=== PATIENT | female | born 1990 | race Caucasian/White ===

== ENCOUNTER 2018-10-17 07:50 | Emergency (ER) | payer OTHER ==
[2016-07-24 11:28] VITALS: BP 105/75
--- NOTE | 2018-10-17 08:43 | Diagnostic Imaging Report ---
DARBY GARNICA [facility] [id number] [facility] [address] [place], [place]. [address] Report Submission Date: Oct 17, 2018 8:38:59 AM COAL DIGGER Patient Study Name: CARLOS EGAN Date: Oct 17, 2018 8:06:30 AM COAL DIGGER Modality Type: DX Gender: F Description: CHEST : 89 Institution: [facility] Physician: DARBY GARNICA Examination: PA and lateral chest. History: Evaluate lung [place]. PT STATES PRODUCTIVE COUGH X 3 WEEKS Comparison exam: None provided. Findings: PA and lateral views of the chest demonstrates a normal cardiac and mediastinal silhouette. No focal infiltrate. No blunting of the costophrenic margins. Osseous structures are appropriate for age. Impression: No acute pulmonary process. Electronically signed on Oct 17, 2018 8:38:59 AM COAL DIGGER by: Florencio MARKS
== END 2018-10-17 09:00 | disposition home or self-care (01) ==
LOC: SUPCPDRO 07:50 → ED 07:50
DX: J06.9 Acute upper respiratory infection, unspecified (principal)
CPT/HCPCS: 71046; 96372; 99282; 99283; J2930

== ENCOUNTER 2018-12-08 07:41 | Emergency (ER) | payer OTHER ==
--- NOTE | 2018-12-08 07:48 | ED Physician Documentation ---
Pediatric Illness - HISTORIAN Historian: patient - PAST HX Allergies/Adverse Reactions: Allergies Allergy/AdvReac Type Severity Reaction Status Date / Time No Known Drug Allergies Allergy Verified 07/24/16 11:30 Discharge Referrals: Kitty Beavers MD [Primary Care Provider] - 2 Days
--- NOTE | 2018-12-08 07:49 | ED Physician Documentation ---
General Adult - HISTORIAN Historian: patient - HPI Stated Complaint: sore throat son has strep Chief Complaint: Sore Throat Onset: days ago (1) Timing: still present Severity: mild Further Comments: yes (She states her older son has strep and this am younger son woke with fever and she has had a sore throat. No fever. No rash. No other complaints) Last known Well Code/Unknown Code: Unknown - ROS CONST: no problems MS/SKIN/LYMPH: none NEURO/PSYCH: denies: headache - PAST HX Past History: none Other History: none Immunizations: UTD Allergies/Adverse Reactions: Allergies Allergy/AdvReac Type Severity Reaction Status Date / Time No Known Drug Allergies Allergy Verified 12/08/18 08:19 - SOCIAL HX Smoking History: non-smoker Alcohol Use: none Drug Use: none - FAMILY HX Family History: No - VITAL SIGNS Vital Signs: Vital Signs Temp Pulse Resp BP Pulse Ox 105/75 07/24/16 11:51 - REVIEWED ASSESSMENTS Nursing Assessment Reviewed: Yes Vitals Reviewed: Yes General Adult Physical Exam - PHYSICAL EXAM GENERAL APPEARANCE: no distress EENT: eye inspection normal, no signs of dehydration, TM's nml, pharyngeal erythema NECK: normal inspection RESPIRATORY: no resp distress, chest non-tender CVS: reg rate & rhythm ABDOMEN: soft, normal bowel sounds SKIN: warm/dry EXTREMITIES: non-tender NEURO: oriented X3 Discharge Clincal Impression: Strep throat Referrals: Kitty Beavers MD [Primary Care Provider] - 2 Days Comments: 1. Amoxicillin 875 mg take 1 by mouth twice a day x 10 days 2. Increase fluids 3. OTC meds as directed for pain or fever 4. Return to PCP for any concerns in 2-4 days 5. Return to ER for any concerns Condition: Stable Disposition: 01 HOME, SELF-CARE Decision to Admit: NO Date of Decison to Admit: 12/08/18 Decision Time: 08:27
[2018-12-08 08:47] VITALS: BP 130/68
== END 2018-12-08 08:32 | disposition home or self-care (01) ==
LOC: ED 07:41
DX: J02.0 Streptococcal pharyngitis (principal)
CPT/HCPCS: 87070; 87880; 99283

== ENCOUNTER 2018-12-24 08:47 | Emergency (ER) | payer OTHER ==
--- NOTE | 2018-12-24 09:03 | ED Physician Documentation ---
Upper Respiratory Symptoms - HISTORIAN Historian: patient - HPI Stated Complaint: cough, sinus pressure Chief Complaint: Cough/ Upper Respiratory Additional Information: Patient presents to ED with a 7 day history of cough, nasal congestion and sinus pressure. She reports fever today of 101.0. Onset: days ago (7) Duration: constant Context: denies: recent foreign travel Severity: moderate Associated Symptoms: fever, runny nose, sinus pain, headache. denies: productive cough, shortness of breath Worsened by Deep Breath: No Further Comments: no - ROS CONST/EYES: denies: weakness CVS/RESP: denies: chest pain, shortness of breath LYMPH: denies: ankle swelling GI/: denies: vomiting, nausea NEURO/PSYCH: denies: dizziness MS/SKIN: denies: muscle aches - PAST HX Lung Disease: none PE Risk Factors: none Surgeries/Procedures: none Allergies/Adverse Reactions: Allergies Allergy/AdvReac Type Severity Reaction Status Date / Time No Known Drug Allergies Allergy Verified 12/08/18 08:19 - SOCIAL HX Smoking History: non-smoker Alcohol Use: none Drug Use: none - FAMILY HX Family History: none - VITAL SIGNS Vital Signs: Vital Signs Temp Pulse Resp BP Pulse Ox 130/68 12/08/18 08:30 - REVIEWED ASSESSMENTS Nursing Assessment Reviewed: Yes Vitals Reviewed: Yes Upper Respiratory Symptoms - EXAM General Appearance: no acute distress, alert EENT: pain over sinuses, frontal, pharynx nml Neck: lymphadenopathy Respiratory: no resp. distress, breath sounds nml Abdomen: non-tender, nml bowel sounds CVS: reg rate & rhythm, heart sounds normal Skin: color nml, no rash, warm,dry Extremities: non-tender Neuro/Psych: oriented x3 Discharge Clincal Impression: Acute frontal sinusitis Qualifiers: Recurrence: non-recurrent Qualified Code(s): J01.10 - Acute frontal sinusitis, unspecified Referrals: Kitty Beavers MD [Primary Care Provider] - 2 Days Additional Instructions: 1. tylenol and/or Ibuprofen as needed for pain/fever 2. Add antihistamine daily such as Zyrtec, Claritin, Xyzal, Ivonne 3. Afrin nasal spray for nasal congestion. Do NOT use for more than 3 days 4. Sinus irrigation may be beneficial 5. Follow up with PCP within 1 week 6. Return to ER for new or worsening symptoms Condition: Stable Disposition: HOME, SELF-CARE Decision to Admit: NO Date of Decison to Admit: 12/24/18 Decision Time: 09:08
[2018-12-24 09:20] VITALS: BP 106/70
== END 2018-12-24 09:18 | disposition home or self-care (01) ==
LOC: ED 08:47
DX: J01.10 Acute frontal sinusitis, unspecified (principal)
CPT/HCPCS: 99281; 99282